=== PATIENT | female | born 1990 | race Caucasian/White ===

== ENCOUNTER 2016-04-20 12:33 | Emergency (ER) | payer MEDICAID ==
[~2016-04-20] VITALS: Wt 63.0 kg
[~2016-04-20 12:33] MED LIST: ACET325T33 PO; CEPH-443 PO; HYDR-906 PO; METO10TA92 PO; NITR-58 PO
[2016-04-20] MEDS ORDERED: ACETAMINOPHEN 325 MG TAB PO ONE (15:00)
[2016-04-20] MEDS ORDERED: METOCLOPRAMIDE 10 MG TAB PO ONE (15:00)
[2016-04-20 15:28] LABS: BASOPHIL # 0.1 10^3/ul (0.0-0.1); BASOPHILS % 1.3 % (0.0-2.0); EOSINOPHILS % 0.5 % (0.0-7.0); HEMATOCRIT 39.5 % (37.0-47.0); HEMOGLOBIN 13.3 g/dl (12.0-16.0); LYMPHOCYTES # 2.3 10^3/ul (0.8-2.9); LYMPHOCYTES % 23.3 % (15.0-51.0); MEAN CORPUSCULAR HEMOGLOBIN 32.1 pg (29.0-33.0); MEAN CORPUSCULAR HGB CONC 33.7 g/dl (32.0-37.0); MEAN CORPUSCULAR VOLUME 95.4 fl (82.0-101.0); MEAN PLATELET VOLUME 7.6 fl (7.4-10.4); MONOCYTE # 0.4 10^3/ul (0.3-0.9); MONOCYTES % 3.9 % (0.0-11.0); PLATELET COUNT 290 10^3/UL (140-440); RED BLOOD COUNT 4.14 10^6/ul (4.20-5.40); RED CELL DISTRIBUTION WIDTH 14.7 % (11.5-14.5); UNCORRECTED WBC 9.9 10^3/ul (4.8-10.8); WHITE BLOOD COUNT 9.9 10^3/ul (4.8-10.8)
[2016-04-20 15:29] LABS: CONDITION 1; LH ANALYZER COMMENTS 1
[2016-04-20 15:39] LABS: ADD UMIC YES; URINE BILIRUBIN (Dip) NEGATIVE (NEGATIVE); URINE BLOOD (Dip) NEGATIVE (NEGATIVE); URINE GLUCOSE (Dip) NEGATIVE (NEGATIVE); URINE KETONES (Dip) 3+ (NEGATIVE); URINE LEUKOCYTE ESTERASE (Dip) TRACE (NEGATIVE); URINE NITRITE (Dip) NEGATIVE (NEGATIVE); URINE TOTAL PROTEIN (Dip) NEGATIVE (NEGATIVE); URINE UROBILINOGEN (Dip) 1.0 E.U./dL (0.1-1.0)
[2016-04-20 15:47] LABS: URINE COLOR YELLOW (YELLOW)
--- NOTE | 2016-04-20 15:48 | RADRPT ---
PROCEDURE: US OB. CLINICAL INDICATION: Vaginal bleeding TECHNIQUE: Multiple sonographic images of the pelvis and gravid uterus were obtained. The images were reviewed on a PACS workstation. COMPARISON: 02/29/2016 FINDINGS: There is a single viable intrauterine gestation. Cardiac activity is present with 142 beats per min [place]. There is a variable presentation. The placenta is anterior. There is no evidence for an abruption or placenta previa. There is a normal amount of amniotic fluid with a MVP = 3.1 cm. Measurements were made in order to determine age. The results are as follows: BPD =3.7 cm HC =13.6 cm AC =12.1 cm FL =2.3 cm Estimated gestational age of approximately 17 weeks and 2 days based on ultrasound measurements. The estimated date of delivery is 09/26/16, based on ultrasound measurements. The EFW = 191 g. The right ovary is normal in size and echogenicity measures 3.5 x 1.6 x 2.1 cm. The left ovary is n ot seen. RPTAT: AA IMPRESSION: Single viable intrauterine gestation of approximately 17 weeks and 2 days based on ultrasound measu rements. .Bandar Murrell MD, Date Time Electronically viewed and signed by .Bandar Murrell MD, on 04/20/2016 15:48 .S/
[2016-04-20 15:55] LABS: BACTERIA,URINE MANY; MUCUS,URINE MODERATE; SQUAMOUS EPITHELIAL CELL,UR MODERATE
[2016-04-20 15:56] LABS: URINE RBCS NONE SEEN /HPF (0)
[2016-04-20] MEDS ORDERED: CEPH-443 PO (16:49)
--- NOTE | 2016-04-20 16:54 | ERD ---
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 HPI Patient is a 26-year-old female approximately 16 weeks complaining of 9 out of 10 pelvic pain with nausea and vomiting. She states that today she went to the bathroom and she wiped and there was a small amount of blood and then she had a small clot come out. She does admit to dysuria and frequency and that her urine smells bad. She denies fever. She is tolerating oral intake. ROS All systems reviewed and are negative except as per history of present illness. Medications Home Meds Active Scripts Cephalexin* (Keflex*) 500 Mg Capsule, 500 MG PO BID for 5 Days, CAP Prov:MARIBELL STOLL PA-C 04/20/16 Metoclopramide* (Reglan*) 10 Mg Tablet, 10 MG PO Q6 Y for NAUSEA AND/OR VOMITING , #10 TAB Prov:DONATO BECERRIL PA-C 02/29/16 Cephalexin* (Keflex*) 500 Mg Capsule, 500 MG PO QID for 7 Days, CAP Prov:DONATO BECERRIL PA-C 02/29/16 Acetaminophen* (Tylenol*) 325 Mg Tablet, 1 TAB PO Q6 Y for PAIN AND OR ELEVATED TEMP, #30 TAB Prov:TJ MORRISON PA-C 02/13/16 Cephalexin* (Keflex*) 500 Mg Capsule, 500 MG PO QID for 7 Days, CAP Prov:TJ MORRISON PA-C 02/13/16 Nitrofurantoin Monohyd Macrocr* (Macrobid*) 100 Mg Capsr, 100 MG PO BID for 7 Days, CAP Prov:TJ MORRISON PA-C 11/28/15 Hydrocodone/Acetaminophen ([place] 5-325 Tablet) 1 Each Tablet, 1 TAB PO Q6H Y for PAIN, #7 TAB Prov:TJ MORRISON PA-C 11/28/15 Allergies Allergies: Coded Allergies: No Known Allergy (Unverified , 02/13/16) PMhx/Soc Medical and Surgical Hx: pt denies Medical Hx, pt denies Surgical Hx History of Surgery: No Anesthesia Reaction: No Hx Neurological Disorder: No Hx Respiratory Disorders: No Hx Cardiac Disorders: No Hx Psychiatric Problems: No Hx Miscellaneous Medical Probl: No Hx Alcohol Use: No Hx Substance Use: No Hx Tobacco Use: No Smoking Status: Never smoker FmHx Family History: No diabetes Physical Exam Vitals Vital Signs Date Time Temp Pulse Resp B/P Pulse Ox O2 Delivery O2 Flow Rate FiO2 04/20/16 13:00 97.9 73 20 116/64 98 Physical Exam General: well developed, well nourished, alert, nontoxic, no distress Head: normocephalic, atraumatic Eyes: PERRL, normal conjunctiva Neck: Supple, nontender, no lymphadenopathy, no midline tenderness Respiratory: Clear to auscaultation bilaterally, speaks in full sentences, no use of accesory muscles or labored breathing, no rales, ronchi, or wheezing Cardiovascular: RRR, No murmurs GI: soft, non tender, non distended, negative murphys sign, negative mcburneys point tenderness, no cva tenderness bilaterally, no rebound or guarding Back: no midline tenderness, no step offs or bony abnormalities, sensation to light touch in tact Result Diagram: 04/20/16 1510 Results 24 hrs Laboratory Tests Test 04/20/16 15:10 04/20/16 15:12 Basophils # 0.110^3/ul Basophils % 1.3% Beta HCG, Quantitative 01619.0mIU/ml Blood Morphology Comment Eosinophils # 0.010^3/ul Eosinophils % 0.5% Hematocrit 39.5% Hemoglobin 13.3g/dl Lymphocytes # 2.310^3/ul Lymphocytes % 23.3% Mean Corpuscular Hemoglobin 32.1pg Mean Corpuscular Hemoglobin Concent 33.7g/dl Mean Corpuscular Volume 95.4fl Mean Platelet Volume 7.6fl Monocytes # 0.410^3/ul Monocytes % 3.9% Neutrophils # 7.010^3/ul Neutrophils % 71.0% Nucleated Red Blood Cells # 0.010^3/ul Nucleated Red Blood Cells % 0.0/100WBC Platelet Count 10178^3/UL Red Blood Count 4.1410^6/ul Red Cell Distribution Width 14.7% White Blood Count 9.910^3/ul Urine Amorphous Urates FEW Urine Bacteria MANY Urine Bilirubin NEGATIVE Urine Clarity CLOUDY Urine Color YELLOW Urine Glucose NEGATIVE% Urine Hemoglobin NEGATIVE Urine Ketones 3+ Urine Leukocyte Esterase TRACE Urine Microscopic RBC NONE SEEN/HPF Urine Microscopic WBC 10-25/HPF Urine Mucus MODERATE Urine Nitrite NEGATIVE Urine Specific [place] 1.025 Urine Squamous Epithelial Cells MODERATE Urine Total Protein NEGATIVE Urine Urobilinogen 1.0 E.U./dL Urine pH 6.5 Current Medications Medications (Trade) Dose Ordered Sig/Brett Route PRN Reason Start Time Stop Time Status Last Admin Dose Admin Metoclopramide HCl (Reglan) 10 mg ONCE ONCE PO 04/20/16 15:00 04/20/16 15:01 DC 04/20/16 15:11 Acetaminophen (Tylenol Tab) 650 mg ONCE ONCE PO 04/20/16 15:00 04/20/16 15:01 DC 04/20/16 15:11 Procedures/MDM Patient presents with vaginal bleeding during . Vital signs are within normal limits. Exam is benign. She is hemodynamically stable. Ultrasound is within normal limits and shows viable intrauterine . Urine shows mild urinary tract infection possibly with trace leukocytes. Given she is symptomatic I will treat her with Keflex and I told her she could take Tylenol at home for pain. She was given copies of her ultrasound report and labs. Recommended this patient follow up with her primary care doctor within 48 hours or return to the emergency room for any worsening of symptoms. However this time I do believe there is suitable for outpatient management. I answered all their questions and they agreed with the plan and were discharged home. Departure Diagnosis: Primary Impression: Threatened Condition: Stable Patient Instructions: Possible Miscarriage (Threatened ) Additional Instructions: Call your primary care doctor TOMORROW for an appointment during the next 1-2 days.See the doctor sooner or return here if your condition worsens before your appointment time. MARIBELL STOLL PA-C Apr 20, 2016 16:54
== END 2016-04-20 18:57 | disposition home or self-care (01) ==
LOC: FTE 12:33
DX: O20.0 Threatened abortion (principal); Z3A.17 17 weeks gestation of pregnancy
CPT/HCPCS: 36415; 76801; 81001; 81003; 84702; 85025; 86900; 86901; Z7502; Z7610

== ENCOUNTER 2016-06-11 17:54 | Outpatient (CLI) | payer MEDICAID ==
[~2016-06-11] VITALS: Ht 154.9 cm; Wt 58.9 kg
[2016-06-11 18:16] VITALS: Ht 154.9 cm; Wt 58.9 kg
[2016-06-11 18:17] VITALS: BP 112/67; PULSE 77
[2016-06-11 18:29] LABS: ADD UMIC YES; URINE BILIRUBIN (Dip) NEGATIVE (NEGATIVE); URINE BLOOD (Dip) NEGATIVE (NEGATIVE); URINE COLOR LT. YELLOW (YELLOW); URINE GLUCOSE (Dip) NEGATIVE (NEGATIVE); URINE KETONES (Dip) NEGATIVE (NEGATIVE); URINE LEUKOCYTE ESTERASE (Dip) TRACE (NEGATIVE); URINE NITRITE (Dip) NEGATIVE (NEGATIVE); URINE TOTAL PROTEIN (Dip) NEGATIVE (NEGATIVE); URINE UROBILINOGEN (Dip) 0.2 E.U./dL (0.1-1.0)
[2016-06-11 18:58] LABS: BACTERIA,URINE MODERATE; SQUAMOUS EPITHELIAL CELL,UR MANY; URINE RBCS NONE SEEN /HPF (0)
--- NOTE | 2016-06-11 19:05 | RADRPT ---
PROCEDURE: US OB. CLINICAL INDICATION: Pelvic pain. TECHNIQUE: Multiple sonographic images of the uterus were obtained. Transvaginal sonogra phy of the cervix was also performed. The images were reviewed on a PACS workstation. COMPARISON: No prior studies are available for comparison. FINDINGS: There is a single live intrauterine gestation. heart rate is 150 beats per minute. Measurements were made in order to determine age. The results are as follows: BPD = 5.78 cm. HC = 22.39 cm. AC = 19.96 cm. FL = 4.27 cm. Estimated weight is 681 +/- 102 grams. LMP growth percentile is 55 %. Cervical length is 4.4 cm. Menstrual age by ultrasound dates is 24 weeks 1 day. The estimated date of delivery is 09/30/2016. Position is breech and placenta is anterior grade 0. There is no evidence for an abruption or placen ta previa. IMPRESSION: 1. Single live intrauterine gestation of 24 weeks 1 day menstrual age by ultrasound dates. 2. The estimated date of delivery is 09/30/2016. 3. Cervical length is 4.4 cm. RPTAT: QQ .Devyn Benton MD, MD Date Time Electronically viewed and signed by .Devyn Benton MD, MD on 06/11/2016 19:05 .R/
[2016-06-11] MEDS ORDERED: ACETAMINOPHEN 500 MG TAB PO STA (19:15)
--- NOTE | 2016-06-11 20:23 | TRIAGE ---
OB Triage Datetime Report Generated by CPN: 06/11/2016 20:23 Datetime: 06/11/2016 20:00 Labor Evaluation Frequency: NONE Monitor Mode: External Duration (sec)2399: NONE Pattern: Normal: <= 5 Contractions in 10 Minutes Contraction Comments: ABD SOFT Heart Rate FHR Baseline Rate: 145 Monitor Mode: External US FHR Baseline Changes: No Baseline Change Variability: Moderate 6-25 bpm Accelerations: 10X10 Decelerations: None Category: Category I Datetime: 06/11/2016 19:30 Labor Evaluation Frequency: NONE Monitor Mode: External Duration (sec)2399: NONE Pattern: Normal: <= 5 Contractions in 10 Minutes Heart Rate FHR Baseline Rate: 145 Monitor Mode: External US FHR Baseline Changes: No Baseline Change Variability: Moderate 6-25 bpm Accelerations: 10X10 Decelerations: Variable Comments: APPROPRIATE FOR GA Datetime: 06/11/2016 19:12 Assessment Type: Triage Maternal Assessment Level of Consciousness: Fully Conscious Headache: Generalized Blurred Vision: No Respiratory Effort: Unlabored; Regular Rhythm; Equal Expansion Breath Sounds, Left: Clear and Equal Breath Sounds, Right: Clear and Equal Nausea/Vomiting: Denies RUQ Epigastric Pain: Denies Lower Extremities Edema: None Degree: None Upper Extremities Edema: None Degree: None Facial Edema: None Fall Risk Assessment History of Falling: (0) No Secondary Diagnosis: (0) No Ambulatory Aid: (0) Bedrest/Nurse Assist IV Therapy: (0) No Gait: (0) Normal/Bedrest/Immobile Mental Status: (0) Oriented to Own Ability Fall Score: 0 Fall Risk Score Definition: No Risk: No action required Datetime: 06/11/2016 19:11 Monitor Mode: Palpation Resting Tone [place]: Relaxed Contraction Comments: abd palpated, soft, non tender Monitor Mode: External US Datetime: 06/11/2016 18:20 Stage of : OB Triage Assessment Type: Triage Maternal Assessment Level of Consciousness: Fully Conscious DTR's/Clonus: DTRs 2+; No Clonus Headache: Denies Blurred Vision: No Respiratory Effort: Unlabored; Regular Rhythm; Equal Expansion Breath Sounds, Left: Clear and Equal Breath Sounds, Right: Clear and Equal Nausea/Vomiting: Denies RUQ Epigastric Pain: Denies Lower Extremities Edema: None Degree: None Upper Extremities Edema: None Degree: None Facial Edema: None Temperature Route: Axillary Fall Risk Assessment History of Falling: (0) No Secondary Diagnosis: (0) No Ambulatory Aid: (0) Bedrest/Nurse Assist IV Therapy: (0) No Gait: (0) Normal/Bedrest/Immobile Mental Status: (0) Oriented to Own Ability Fall Score: 0 Fall Risk Score Definition: No Risk: No action required Labor Evaluation Frequency: x1 Monitor Mode: External Duration (sec)2399: 50 Quality: Mild Pattern: Normal: <= 5 Contractions in 10 Minutes Resting Tone [place]: Relaxed Heart Rate FHR Baseline Rate: 150 Monitor Mode: External US Variability: Moderate 6-25 bpm Decelerations: None Category: Category I Pain Assessment Pain Scale: 8 Pain Presence: Constant Pain Type: Cramping Pain Location: rt lower abdomen Pain Goal: 3 Pain Relief Measures: Comfort Measures Datetime: 06/11/2016 18:19 EGA: 24.1 Datetime: 06/11/2016 18:18 Time of Arrival: 06/11/2016 17:50 Arrived By: Ambulatory Arrived From: Home Chief Complaint: c/o lower right quadrant pain today, denies bleeding, leaking of fluid or uc's Movement: Present Contractions: Denies/Absent Rupture of Membranes: Denies Vaginal Bleeding: None Vaginal Discharge: Denies Recent Sexual Intercouse: Denies Abdominal Trauma: Not Applicable Patient Complaints: Cramping Time Provider Notified: 06/11/2016 18:02 Provider Notified: VANESA Initial Plan: monitor, u/s for placenta, efw, cl Datetime: 06/11/2016 18:02 Stage of : OB Triage
--- NOTE | 2016-06-11 20:40 | PN ---
Date/Time of Note Date/Time of Note DATE: 06/11/16 TIME: 20:29 OB Subjective Subjective Subjective patient is 24+ wks gestation presents with abdominal pain OB Objective Objective Objective OB ultrasound wnl UA wnl Cx 4.4 cm HEENT: WNL Heart: Rhythm Normal Lungs: Clear Abdomen: WNL Extremities: Normal Reflexes: Normal Membranes: Intact Accelerations: Accelerations Present Decelerations: No Decelerations Contractions on Admission: None OB Assessment/Plan Reason for admission: other Other Assessment: Abdominal pain Other plan: D/C home Follow up with OBGYN as outpatient JUSTIN ASHER Jun 11, 2016 20:39
== END 2016-06-11 20:25 | disposition home or self-care (01) ==
LOC: OBT 17:54 → L-D 17:55 → OBT 20:25
PROVIDERS: ATTEND Obstetrics & Gynecology
DX: O60.02 Preterm labor without delivery, second trimester (principal); Z3A.24 24 weeks gestation of pregnancy
CPT/HCPCS: 76815; 76817; 81001; Z7500; Z7610; 81003; G0463

== ENCOUNTER 2016-08-18 09:58 | Emergency (ER) | payer MEDICAID ==
[~2016-08-18] VITALS: Ht 162.6 cm; Wt 61.0 kg
[2016-08-18 10:13] VITALS: Ht 162.6 cm; Wt 61.0 kg
[2016-08-18] MEDS ORDERED: ACETAMINOPHEN 500 MG TAB PO STA (11:22)
[2016-08-18] MEDS ORDERED: METOCLOPRAMIDE 10 MG TAB PO ONE (11:30)
[2016-08-18 11:51] LABS: ADD UMIC YES; URINE BILIRUBIN (Dip) NEGATIVE (NEGATIVE); URINE BLOOD (Dip) NEGATIVE (NEGATIVE); URINE COLOR LT. YELLOW (YELLOW); URINE GLUCOSE (Dip) NEGATIVE (NEGATIVE); URINE KETONES (Dip) TRACE (NEGATIVE); URINE LEUKOCYTE ESTERASE (Dip) TRACE (NEGATIVE); URINE NITRITE (Dip) NEGATIVE (NEGATIVE); URINE TOTAL PROTEIN (Dip) NEGATIVE (NEGATIVE); URINE UROBILINOGEN (Dip) 0.2 E.U./dL (0.1-1.0)
[2016-08-18 12:03] LABS: BACTERIA,URINE MANY
[2016-08-18] MEDS ORDERED: CEPHALEXIN 500 MG CAP PO ONE (12:30)
[2016-08-18] MEDS ORDERED: CEPH-443 PO (12:32)
[2016-08-18] MEDS ORDERED: ACET500C5 PO (12:32)
--- NOTE | 2016-08-18 12:36 | ERD ---
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 Patient presents with left arm pain after receiving Tdap vaccination 2 days ago. She also has subjective fever and body aches. She had some vomiting 2 times nonbilious nonbloody. She denies abdominal pain or vaginal bleeding. She has mild generalized myalgias as well. She is mild bitemporal headache without neck stiffness as well. She has visual changes . ROS All systems reviewed and are negative except as per history of present illness. Medications Home Meds Active Scripts Acetaminophen* (Tylophen*) 500 Mg Capsule, 1 CAP PO Q6H Y for PAIN AND OR ELEVATED TEMP, #15 CAP Prov:JAZMINE ANNE MD 08/18/16 Cephalexin* (Keflex*) 500 Mg Capsule, 500 MG PO QID for 5 Days, CAP Prov:JAZMINE ANNE MD 08/18/16 Allergies Allergies: Coded Allergies: No Known Allergy (Unverified , 08/18/16) PMhx/Soc Medical and Surgical Hx: pt denies Medical Hx, pt denies Surgical Hx History of Surgery: No Anesthesia Reaction: No Hx Neurological Disorder: No Hx Respiratory Disorders: No Hx Cardiac Disorders: No Hx Psychiatric Problems: No Hx Miscellaneous Medical Probl: No Hx Alcohol Use: No Hx Substance Use: No Hx Tobacco Use: No Smoking Status: Never smoker Physical Exam Vitals Vital Signs Date Time Temp Pulse Resp B/P Pulse Ox O2 Delivery O2 Flow Rate FiO2 08/18/16 10:13 98.0 66 18 136/74 98 Physical Exam Const: [] Alert, [id number] Head: Atraumatic Eyes: Normal Conjunctiva ENT: Normal External Ears, Nose and Mouth. Neck: Full range of motion..~ No meningismus. Resp: Clear to auscultation bilaterally Cardio: Regular rate and rhythm, no murmurs Abd: Soft, non tender, non distended. Normal bowel sounds Skin: No petechiae or rashes. The left deltoid at the site of injection shows no erythema or fluctuance or induration. There is mild tenderness with a healed puncture wound. Back: No midline or flank tenderness Ext: No cyanosis, or edema Neur: Awake and alert Psych: Normal Mood and Affect Results 24 hrs Laboratory Tests Test 08/18/16 11:30 Urine Color LT. YELLOW Urine Clarity CLEAR Urine pH 7.0 Urine Specific [place] 1.015 Urine Ketones TRACE Urine Nitrite NEGATIVE Urine Bilirubin NEGATIVE Urine Urobilinogen 0.2 E.U./dL Urine Leukocyte Esterase TRACE Urine Microscopic RBC 2-5/HPF Urine Microscopic WBC 5-10/HPF Urine Epithelial Cells MODERATE Urine Amorphous Phosphates MANY Urine Bacteria MANY Urine Hemoglobin NEGATIVE Urine Glucose NEGATIVE% Urine Total Protein NEGATIVE Current Medications Medications (Trade) Dose Ordered Sig/Brett Route PRN Reason Start Time Stop Time Status Last Admin Dose Admin Acetaminophen (Tylenol Tab) 500 mg ONCE STAT PO 08/18/16 11:22 08/18/16 11:23 DC 08/18/16 11:27 Metoclopramide HCl (Reglan) 10 mg ONCE ONCE PO 08/18/16 11:30 08/18/16 11:31 DC 08/18/16 11:27 Cephalexin (Keflex) 500 mg ONCE ONCE PO 08/18/16 12:30 08/18/16 12:31 DC Procedures/MDM Urine shows bacteria and leukocytes. Urine was sent for culture. There is no protein. This 33 week patient presents with myalgias febrile illness and 2 episodes of vomiting. She is well-appearing and has no active vomiting during her ED course. She may have a viral illness or somatic response to Tdap was no signs of cellulitis. I have low suspicion that the myalgias subjective fevers are due to descending UTI but patient should recheck for vomiting which persists , abdominal pain, flank pain, new worsening symptoms. There is no signs or symptoms of preeclampsia or current complications of . She will be treated with Keflex here as well as Tylenol 1 dose of Reglan and instructions to follow-up with primary doctor this week return to the ER for new or worsening symptoms. The patient was stable with no new complaints during the ER course. Clinically, there is no current evidence to suggest meningitis, sepsis, acute abdomen, pneumonia, acute coronary syndrome, pulmonary embolism, or any other emergent condition appearing to require further evaluation or hospitalization. The patient should certainly return for any new or worsening symptoms per the aftercare instructions. They should otherwise follow-up with her primary care doctor for reevaluation this week. Departure Diagnosis: Primary Impression: Myalgia Additional Impression: Urinary tract infection Urinary tract infection type: acute cystitis Hematuria presence: without hematuria Qualified Code: N30.00 - Acute cystitis without hematuria Condition: Stable Patient Instructions: Understanding Urinary Tract Infections (UTIs), Myalgias Additional Instructions: FLORINA INFECCION EN ORINA, GIANA POSIBLEMENTE un virus que dura 2-4 [place]. cheque otro german el proximo roula para mas simptomas- vomito, dolor, altagracia, problemas con respirando, o con byrd doctor primario. JAZMINE ANNE MD Aug 18, 2016 12:36
== END 2016-08-18 12:46 | disposition home or self-care (01) ==
LOC: FTE 09:58
DX: O99.89 Other specified diseases and conditions complicating pregnancy, childbirth and the puerperium (principal); M79.1 Myalgia; O23.13 Infections of bladder in pregnancy, third trimester; Z3A.33 33 weeks gestation of pregnancy
CPT/HCPCS: 81001; 87086; Z7502; Z7610; 99283

== ENCOUNTER 2016-09-21 00:40 | Inpatient (IN) | payer MEDICAID ==
[~2016-09-21] VITALS: Ht 154.9 cm; Wt 63.3 kg
[~2016-09-21 00:40] MED LIST changes: -ACET325T33 PO; +ACET500C5 PO; -HYDR-906 PO; -METO10TA92 PO; -NITR-58 PO
[2016-09-21 01:46] VITALS: BP 126/80; PULSE 63; RESP 18
[2016-09-21 01:47] VITALS: Ht 154.9 cm; Wt 63.3 kg
[2016-09-21] MEDS ORDERED: PRENAT PO (01:50)
[2016-09-21] MEDS ORDERED: FERR325C PO (01:50)
[2016-09-21] MEDS ORDERED: CARBOPROST 250 MCG INJ IM PRN ×2 (03:00→05:30)
[2016-09-21] MEDS ORDERED: OXYTOCIN 30 UNITS/LR 500 ML IV PRN ×2 (03:00→05:30)
[2016-09-21] MEDS ORDERED: MISOPROSTOL 200 MCG TAB PR PRN ×2 (03:00→05:30)
[2016-09-21] MEDS ORDERED: LIDOCAINE 1% (MPF) 30 ML INJ INJ PRN (03:00)
[2016-09-21] MEDS ORDERED: BUTORPHANOL 2 MG INJ IV PRN ×2 (03:00)
[2016-09-21] MEDS ORDERED: IBUPROFEN 600 MG TAB PO PRN (03:00)
[2016-09-21] MEDS ORDERED: OXYTOCIN 30 UNITS/LR 500 ML IV SCH ×2 (03:00)
[2016-09-21] MEDS ORDERED: ACETAMINOPHEN/CODEINE #3 TAB PO PRN ×3 (03:00→05:30)
[2016-09-21] MEDS ORDERED: METHYLERGONOVINE 0.2 MG INJ IM PRN ×2 (03:00→05:30)
[2016-09-21] MEDS ORDERED: AMPICILLIN 2 GM/NS (PMX) 100 ML IV ONE (03:00)
--- NOTE | 2016-09-21 03:24 | TRIAGE ---
OB Triage Datetime Report Generated by CPN: 09/21/2016 03:23 Datetime: 09/21/2016 03:05 Stage of : Labor Datetime: 09/21/2016 03:00 Stage of : Labor Monitor Mode: External Monitor Mode: External US Datetime: 09/21/2016 02:35 Stage of : OB Triage Datetime: 09/21/2016 02:30 Stage of : OB Triage Datetime: 09/21/2016 02:26 Stage of : OB Triage Pain Assessment Pain Scale: 10 Pain Presence: Intermittent Pain Type: Contraction Pain Location: Abdomen; Back Pain Goal: 5 Pain Relief Measures: Comfort Measures Vaginal Exam Dilatation (cms): 3.5 Effacement (%): 90 Station: -2 Exam By: sarah villanueva Vaginal Bleeding: None Cervix, Consistency: Soft Cervix, Position: Midposition Presentation 'A': Cephalic Datetime: 09/21/2016 02:17 Labor Evaluation Frequency: 2-6 Monitor Mode: External Duration (sec)2399: 60-120 Pattern: Normal: <= 5 Contractions in 10 Minutes Resting Tone [place]: Relaxed Heart Rate FHR Baseline Rate: 150 Monitor Mode: External US Variability: Moderate 6-25 bpm Accelerations: 15X15 Decelerations: None Category: Category I Pain Assessment Pain Scale: 8 Pain Presence: Intermittent Pain Type: Contraction Pain Location: Abdomen; Back Pain Goal: 5 Pain Relief Measures: Comfort Measures Datetime: 09/21/2016 01:13 Labor Evaluation Frequency: 2-4 Monitor Mode: External Duration (sec)2399: 60-80 Quality: Mild Pattern: Normal: <= 5 Contractions in 10 Minutes Resting Tone [place]: Relaxed Heart Rate FHR Baseline Rate: 155 Monitor Mode: External US Variability: Moderate 6-25 bpm Accelerations: 15X15 Decelerations: None Category: Category I Datetime: 09/21/2016 01:08 Assessment Type: Triage Maternal Assessment Level of Consciousness: Fully Conscious DTR's/Clonus: DTRs 2+; No Clonus Headache: Denies Blurred Vision: No Respiratory Effort: Unlabored; Regular Rhythm; Equal Expansion Nausea/Vomiting: Denies RUQ Epigastric Pain: Denies Facial Edema: None Fall Risk Assessment History of Falling: (0) No Secondary Diagnosis: (0) No Ambulatory Aid: (0) Bedrest/Nurse Assist IV Therapy: (0) No Gait: (0) Normal/Bedrest/Immobile Mental Status: (0) Oriented to Own Ability Datetime: 09/21/2016 01:05 Time of Arrival: 09/21/2016 03:05 Arrived By: Ambulatory Arrived From: Home Chief Complaint: Contraction pain 10/25 Movement: Present Contractions: Irregular Time Contractions Began: 09/20/2016 19:00 Rupture of Membranes: Denies Vaginal Bleeding: None Vaginal Discharge: Denies Recent Sexual Intercouse: Denies Abdominal Trauma: Not Applicable Patient Complaints: Contractions Time Provider Notified: 09/21/2016 01:06 Provider Notified: Uaje Initial Plan: NST, Vaginal exam for cevical change Datetime: 09/21/2016 00:51 Stage of : OB Triage Temperature Route: Oral Monitor Mode: External (Annotations: applied) Monitor Mode: External US (Annotations: applied) Pain Assessment Pain Scale: 8 Pain Presence: Intermittent Pain Type: Contraction Pain Location: Abdomen; Back Pain Goal: 0 Pain Assessment Comments: Continue to observe if uterine activity will result to cervical change, pt verbalized understanding. Vaginal Exam Dilatation (cms): 2.0 Effacement (%): 80 Station: -3 Exam By: Bonny Hamilton
[2016-09-21 03:33] LABS: ADD SCAN DIFF NO
[2016-09-21 03:35] LABS: BASOPHILS % 0.3 % (0.0-2.0); EOSINOPHILS % 0.2 % (0.0-7.0); HEMATOCRIT 40.2 % (37.0-47.0); HEMOGLOBIN 13.2 g/dl (12.0-16.0); LYMPHOCYTES # 2.2 10^3/ul (0.8-2.9); LYMPHOCYTES % 19.8 % (15.0-51.0); MEAN CORPUSCULAR HEMOGLOBIN 30.3 pg (29.0-33.0); MEAN CORPUSCULAR HGB CONC 32.8 g/dl (32.0-37.0); MEAN CORPUSCULAR VOLUME 92.2 fl (82.0-101.0); MEAN PLATELET VOLUME 11.9 fl (7.4-10.4); MONOCYTE # 0.5 10^3/ul (0.3-0.9); MONOCYTES % 4.3 % (0.0-11.0); NEUTROPHIL # 8.5 10^3/ul (1.6-7.5); NEUTROPHILS % 74.9 % (39.0-77.0); PLATELET COUNT 217 10^3/UL (140-415); RED BLOOD COUNT 4.36 10^6/ul (4.20-5.40); RED CELL DISTRIBUTION WIDTH 13.6 % (11.5-14.5); WHITE BLOOD COUNT 11.3 10^3/ul (4.8-10.8)
[2016-09-21] MEDS: LACTATED RINGER'S 1,000 ML IV SCH ×2 (03:44→10:35)
[2016-09-21 03:51] LABS: INR 0.88; PARTIAL THROMBOPLASTIN TIME 25.3 Sec (25.0-35.0); PROTIME 11.9 Sec (12.2-14.2); PT RATIO 0.9
[2016-09-21] MEDS ORDERED: LACTATED RINGER'S 1,000 ML IV PRN (05:00)
[2016-09-21 05:02] LABS: BARBITURATES Negative (NEGATIVE); BENZODIAZEPINES Negative (NEGATIVE); CANNABINOIDS Negative (NEGATIVE); COCAINE Negative (NEGATIVE); OPIATES Negative (NEGATIVE)
--- NOTE | 2016-09-21 05:13 | HP ---
Date/Time of Note Date/Time of Note DATE: 09/21/16 TIME: 05:11 OB - History Hx of Present Chief Complaint: Contractions Estimated Due Date: Sep 30, 2016 : 1 Para: 0 Care: Good Care Ultrasounds: Normal mid trimester US Obstetrical Complications: None Medical Complications: None Past Family/Social History * Past Medical, Surgical, Family and Obstetric Histories reviewed from chart. OB Admission Exam Vital Signs Vital Signs Vital Signs Date Time Temp Pulse Resp B/P Pulse Ox O2 Delivery O2 Flow Rate FiO2 09/21/16 01:46 98.2 63 18 126/80 Room Air Physical Exam HEENT: WNL Heart: Rhythm Normal Lungs: Clear, Equal Abdomen: WNL Extremities: Normal Reflexes: Normal Cervical Dilatation: 3cm Accelerations: Accelerations Present Decelerations: Variable Decelerations Varibility: Moderate Contractions on Admission: < 5 Minutes Apart Last 72 hours Lab Results CBC & BMP 09/21/16 03:10 OB Assessment/Plan Reason for admission: active labor Plan: Expectant Management ELIU FOWLER Sep 21, 2016 05:13
[2016-09-21] MEDS: OXYTOCIN 30 UNITS/LR 500 ML IV SCH ×2 (05:16→09:07)
[2016-09-21] MEDS: LACTATED RINGER'S 1,000 ML IV* SCH ×2 (05:16→13:16)
--- NOTE | 2016-09-21 05:16 | LDN ---
Date/Time of Note Date/Time of Note DATE: 09/21/16 TIME: 05:14 Delivery Summary Weeks of Gestation 38 5/7 weeks Placenta Delivered: Intact & Complete Episiotomy: No Perineal laceration: 1 Laceration repair: 1st degree perineal, L. sulcal, R. labial repaired with 3-0 chromic Anesthesia type: Local Estimated blood loss: 200 Sponge & Needle done & correct: Yes All needle counts correct: Yes Any foreign bodies felt in the: No Problems: Infant Delivery Information Sex Sex: female Apgars 1 Minute: 9 5 Minute: 9 Suctioning Nose & mouth suctioned at brinda: Yes Umbilical Cord Cord presentations: no nuchal cord Cord Blood was obtained: Yes Mother & Baby Disposition Disposition Mom & Baby to Maternity; Good: Yes ELIU FOWLER Sep 21, 2016 05:16
[2016-09-21] MEDS ORDERED: LANOLIN 7 GM TUBE TOP PRN (05:30)
[2016-09-21] MEDS ORDERED: DIBUCAINE 1% 30 GM OINT PR PRN (05:30)
[2016-09-21 06:40] VITALS: BP 121/95; PULSE 52; RESP 20
[2016-09-21] MEDS ORDERED: AMPICILLIN 1 GM/NS (PMX) 50 ML IV SCH (07:00)
[2016-09-21] MEDS: IBUPROFEN 600 MG TAB PO SCH ×3 (07:10→18:17)
[2016-09-21 08:30] VITALS: BP 127/83; PULSE 60; RESP 18
[2016-09-21] MEDS: WITCH HAZEL/GLYCERIN PAD PR PRN (09:10)
[2016-09-21] MEDS: BENZOCAINE 20% 56 ML SPRAY TOP PRN (09:11)
[2016-09-21 12:48] VITALS: BP 118/75; PULSE 61; RESP 18
[2016-09-21 16:30] VITALS: BP 109/55; PULSE 61; RESP 18
[2016-09-21 20:00] VITALS: BP 102/52; PULSE 73; RESP 18
[2016-09-22] MEDS: IBUPROFEN 600 MG TAB PO SCH ×5 (00:41→23:40)
[2016-09-22 04:00] VITALS: BP 98/51; PULSE 54; RESP 18
[2016-09-22 08:00] VITALS: BP 104/68; PULSE 63; RESP 18
[2016-09-22 11:02] LABS: ADD SCAN DIFF NO
[2016-09-22 11:04] LABS: BASOPHILS % 0.3 % (0.0-2.0); EOSINOPHILS # 0.1 10^3/ul (0.0-0.5); EOSINOPHILS % 0.7 % (0.0-7.0); HEMATOCRIT 33.5 % (37.0-47.0); HEMOGLOBIN 10.8 g/dl (12.0-16.0); LYMPHOCYTES # 3.1 10^3/ul (0.8-2.9); LYMPHOCYTES % 26.5 % (15.0-51.0); MEAN CORPUSCULAR HEMOGLOBIN 30.5 pg (29.0-33.0); MEAN CORPUSCULAR HGB CONC 32.2 g/dl (32.0-37.0); MEAN CORPUSCULAR VOLUME 94.6 fl (82.0-101.0); MONOCYTE # 0.6 10^3/ul (0.3-0.9); MONOCYTES % 5.1 % (0.0-11.0); NEUTROPHIL # 7.7 10^3/ul (1.6-7.5); PLATELET COUNT 187 10^3/UL (140-415); RED BLOOD COUNT 3.54 10^6/ul (4.20-5.40); RED CELL DISTRIBUTION WIDTH 14.6 % (11.5-14.5); WHITE BLOOD COUNT 11.5 10^3/ul (4.8-10.8)
--- NOTE | 2016-09-22 12:10 | PN ---
Date/Time of Note Date/Time of Note DATE: 09/22/16 TIME: 12:08 OB Subjective Subjective Subjective 09/22/2016 Ob progress note Post day 1 Patient is doing well, Ambulatory She is afebrile Abdomen is soft , Fundus is firm Moderate amount of lochia Breasts are soft, Nipples are intact No calf tenderness. Perineum is healing well. Breast feeding the new born. Laboratory Tests Test 09/22/16 10:30 White Blood Count 11.510^3/ul Red Blood Count 3.5410^6/ul Hemoglobin 10.8g/dl Hematocrit 33.5% Mean Corpuscular Volume 94.6fl Mean Corpuscular Hemoglobin 30.5pg Mean Corpuscular Hemoglobin Concent 32.2g/dl Red Cell Distribution Width 14.6% Platelet Count 76843^3/UL Mean Platelet Volume 11.0fl Neutrophils % 67.0% Lymphocytes % 26.5% Monocytes % 5.1% Eosinophils % 0.7% Basophils % 0.3% Nucleated Red Blood Cells % 0.0/100WBC Neutrophils # 7.710^3/ul Lymphocytes # 3.110^3/ul Monocytes # 0.610^3/ul Eosinophils # 0.110^3/ul Basophils # 0.010^3/ul Nucleated Red Blood Cells # 0.010^3/ul Current Medications Medications (Trade) Dose Ordered Sig/Brett Route PRN Reason Start Time Stop Time Status Last Admin Dose Admin Lactated Ringer's 1,000 ml @ 125 mls/hr Q8H IV 09/21/16 02:35 09/21/16 15:06 DC 09/21/16 03:44 Ampicillin 100 ml @ 100 mls/hr ONCE ONCE IV 09/21/16 03:00 09/21/16 03:59 DC 09/21/16 03:44 Ampicillin (Ampicillin 1 Gm/ NS (Pmx)) 50 ml @ 100 mls/hr Q4H IV 09/21/16 07:00 09/21/16 07:00 DC Butorphanol Tartrate (Stadol) 1 mg Q2H PRN IV PAIN 09/21/16 03:00 09/21/16 06:47 DC Butorphanol Tartrate (Stadol) 2 mg Q2H PRN IV PAIN 09/21/16 03:00 09/21/16 06:47 DC Lidocaine 30 ml 30 ml ONCE PRN INJ EPISIOTOMY/TEARING 09/21/16 03:00 09/21/16 06:47 DC 09/21/16 05:00 Oxytocin/Lactated Ringer's 500 ml @ 125 mls/hr ONCE -MAY REPEAT X1 IV 09/21/16 03:00 09/21/16 05:22 Oxytocin/Lactated Ringer's 500 ml @ 125 mls/hr ONCE IV 09/21/16 03:00 09/21/16 05:22 Ibuprofen (Motrin) 600 mg ONCE PRN PO Mild Pain (Pain Score 1-3) 09/21/16 03:00 Acetaminophen/ Codeine Phosphate 2 tab 2 tab ONCE PRN PO Moderate to Severe Pain (4-10) 09/21/16 03:00 09/21/16 05:28 Lactated Ringer's 1,000 ml @ 2,000 mls/hr Q30M PRN IV PRE-EPIDURAL BOLUS 09/21/16 05:00 Oxytocin/Lactated Ringer's 500 ml @ 0 mls/hr ONCE PRN IV For Hemorrhage Management 09/21/16 03:00 Methylergonovine Maleate (Methergine) 0.2 mg ONCE PRN IM VAGINAL BLEEDING 09/21/16 03:00 09/21/16 05:48 Carboprost Tromethamine (Hemabate) 250 mcg ONCE PRN IM VAGINAL BLEEDING 09/21/16 03:00 Misoprostol 1000 mcg 1,000 mcg ONCE PRN SD VAGINAL BLEEDING 09/21/16 03:00 Oxytocin/Lactated Ringer's 500 ml @ 125 mls/hr Q4H IV 09/21/16 05:16 09/21/16 13:15 DC 09/21/16 09:07 Lactated Ringer's (Lr) 1,000 ml @ 125 mls/hr Q8H IV* 09/21/16 05:16 09/21/16 15:06 DC Ibuprofen (Motrin) 600 mg Q6 PO 09/21/16 06:00 09/22/16 06:11 Acetaminophen/ Codeine Phosphate (Tylenol No.3) 1 tab Q4H PRN PO PAIN LEVEL 1-5 09/21/16 05:30 Acetaminophen/ Codeine Phosphate (Tylenol No.3) 2 tab Q4H PRN PO PAIN LEVEL 6-10 09/21/16 05:30 Witch Deirdre/ Glycerin (Tucks Pads) 1 pad BEDSIDE MEDICATION PRN SD HEMORRHOID/EPISIOTMY PAIN 09/21/16 05:30 09/21/16 09:10 Benzocaine (Dermoplast [place]) 1 spray BEDSIDE MEDICATION PRN TOP HEMORRHOID/EPISIOTMY PAIN 09/21/16 05:30 09/21/16 09:11 Dibucaine (Nupercainal) 1 applic BEDSIDE MEDICATION PRN SD HEMORRHOID/EPISIOTMY PAIN 09/21/16 05:30 09/21/16 09:11 Lanolin (Yzj-A-Xkhmem) 1 applic BEDSIDE MEDICATION PRN TOP BEDSIDE FOR EMY TO NIPPLES 09/21/16 05:30 09/21/16 09:11 Measles/Mumps/ Rubella Vaccine Live (Mmr Ii Vaccine) 0.5 ml ONCE ONCE SC* 09/23/16 09:00 09/23/16 09:01 Diphtheria/ Tetanus/Acell Pertussis (Adacel) 0.5 ml ONCE ONCE IM* 09/23/16 09:00 09/23/16 09:01 Varicella Virus Vaccine Live 1350 unit 1,350 unit ONCE ONCE SC* 09/23/16 09:00 09/23/16 09:01 Oxytocin/Lactated Ringer's 500 ml @ 0 mls/hr ONCE PRN IV For Hemorrhage Management 09/21/16 05:30 Methylergonovine Maleate (Methergine) 0.2 mg ONCE PRN IM VAGINAL BLEEDING 09/21/16 05:30 Carboprost Tromethamine (Hemabate) 250 mcg ONCE PRN IM VAGINAL BLEEDING 09/21/16 05:30 Misoprostol (Cytotec) 1,000 mcg ONCE PRN SD VAGINAL BLEEDING 09/21/16 05:30 Ambulatory and no complaints. NILO HITCHCOCK MD Sep 22, 2016 12:10
[2016-09-22 15:41] VITALS: BP_SYST 109; BP_SYST 118; BP_DIAS 65; BP_DIAS 75; PULSE 73; PULSE 78; RESP 18
[2016-09-22 20:00] VITALS: BP 102/60; PULSE 61; RESP 18
[2016-09-23 04:00] VITALS: BP 123/83; PULSE 62; RESP 18
[2016-09-23] MEDS: IBUPROFEN 600 MG TAB PO SCH ×2 (06:30→12:00)
[2016-09-23 08:00] VITALS: BP 138/83; PULSE 98; RESP 18
[2016-09-23] MEDS ORDERED: MEASLES,MUMPS,RUBELLA VACCINE INJ SC* ONE (09:00)
[2016-09-23] MEDS ORDERED: DIPHTH/TET/ACEL PERTUSS (ADULT) 0.5 ML VIAL IM* ONE (09:00)
[2016-09-23] MEDS ORDERED: VARICELLA VACCINE LIVE/PF 1,350 UNIT/0.5 ML ML SC* ONE (09:00)
--- NOTE | 2016-09-23 11:54 | PD.PPDC ---
DERMATOLOGY SPECIALIST Discharge Instruction Condition Patient Condition: Good Diet Diet: Resume Regular Diet Activity/Restrictions Activity: Normal Activity May Shower Restrictions: No Sexual Activity Nothing in the Vagina No [employer] No Tampons, douche Follow-up Follow-up with Physician: 6, Week/Weeks Return to clinic for [employer] Instructions: Fever greater than 101 Chills Worsening abdominal pain Excessive Vaginal Bleeding OB Instructions: Breast Tenderness Depression SOHAM WORTHINGTON MD Sep 23, 2016 11:54
--- NOTE | 2016-09-23 11:57 | DS ---
Date/Time of Note Date/Time of Note DATE: 09/23/16 TIME: 11:55 Obstetrical Discharge Record Final Diagnosis Final Diagnosis: Term delivered Vaginal Delivery Obstetrical Delivery: Spontaneous, Laceration, Repaired Complications Augmentation: No Induction: No Condition on Discharge Physical Assessment Last Vitals: T=98.3 BP 123/83 Voiding: Yes Bowel Movement: Yes Breast: Filling Fundus: Firm Calf Tenderness: No Patient Condition: Good SOHAM WORTHINGTON MD Sep 23, 2016 11:56
[2016-09-23] MEDS: WITCH HAZEL/GLYCERIN PAD PR PRN (13:29)
[2016-09-23] MEDS: BENZOCAINE 20% 56 ML SPRAY TOP PRN (13:29)
== END 2016-09-23 14:20 | disposition home or self-care (01) | DRG 775 ==
LOC: L-D 00:40 → OBT 00:40 → L-D 02:35 → PP1 06:39
PROVIDERS: ADMIT Obstetrics & Gynecology; ATTEND Obstetrics & Gynecology
PROC: 10E0XZZ Delivery of Products of Conception, External Approach (ICD-10-PCS; principal; 2016-09-21)
PROC: 0HQ9XZZ Repair Perineum Skin, External Approach (ICD-10-PCS; 2016-09-21)
DX: O76 Abnormality in fetal heart rate and rhythm complicating labor and delivery (principal); O70.0 First degree perineal laceration during delivery; Z3A.38 38 weeks gestation of pregnancy; Z37.0 Single live birth
CPT/HCPCS: 80307; 85025; 85610; 85730; 86592; 86900; 86901; 87340; 90715; 90716; A4310; G0463; J0290; J0595; J2210; J2590; J7120

== ENCOUNTER 2018-04-17 10:30 | Emergency (ER) | payer MEDICAID ==
[~2018-04-17] VITALS: Wt 78.8 kg
[~2018-04-17 10:30] MED LIST changes: -ACET500C5 PO; -CEPH-443 PO; +FERR325C PO; +PRENAT PO
[2018-04-17 10:32] VITALS: BP 130/68; PULSE 79; RESP 18
[2018-04-17] MEDS ORDERED: predniSONE 20 MG TAB PO ONE (11:30)
[2018-04-17] MEDS ORDERED: FAMOTIDINE 20 MG TAB PO ONE (11:30)
[2018-04-17] MEDS ORDERED: DIPHENHYDRAMINE 25 MG CAP PO ONE (11:30)
[2018-04-17] MEDS ORDERED: BEN25 PO (11:45)
[2018-04-17] MEDS ORDERED: PRED20TA PO (11:45)
--- NOTE | 2018-04-17 12:27 | ERD ---
ER Documentation Chief Complaint Chief Complaint RASH/ITCHING HPI 28-year-old female patient with no significant past medical history presents to ED complaining of itchiness. Reports that she developed a rash on her back, buttocks. Denies any lip or tongue swelling. Denies any use of soaps, detergents, eating any new foods or any new creams. Denies taking any new medications. Denies any fever, chills, nausea, vomiting, diarrhea, neck st iffness. ROS All systems reviewed and are negative except as per history of present illness. Medications Home Meds Active Scripts Prednisone* (Prednisone*) 20 Mg Tab, 40 MG PO DAILY for 4 Days, TAB Prov:TJ MORRISON PA-C 04/17/18 Diphenhydramine Hcl* (Benadryl*) 25 Mg Cap, 25 MG PO Q6 PRN for ITCHING/RASH, #30 TAB Prov:TJ MORRISON PA-C 04/17/18 Reported Medications Ferrous Sulfate (Iron) 325 Mg Capsule.er, 325 MG PO BID, CAP 09/21/16 Multivit/Min/Fol Ac/Iron/Pren* ( S*) 1 Tab Tab, 1 TAB PO DAILY, TAB 09/21/16 Allergies Allergies: Coded Allergies: No Known Allergy (Unverified , 08/18/16) PMhx/Soc Medical and Surgical Hx: pt denies Medical Hx, pt denies Surgical Hx History of Surgery: No Anesthesia Reaction: No Hx Neurological Disorder: No Hx Respiratory Disorders: No Hx Cardiac Disorders: No Hx Psychiatric Problems: No Hx Miscellaneous Medical Probl: No Hx Alcohol Use: No Hx Substance Use: No Hx Tobacco Use: No FmHx Family History: No diabetes, No coronary disease Physical Exam Vitals Vital Signs Date Temp Pulse Resp B/P (MAP) Pulse Ox O2 O2 Flow FiO2 Time Delivery Rate 04/17/18 97.7 79 18 130/68 99 10:32 (88) Physical Exam Const: [id number], well-nourished. In no acute distress. Head: Atraumatic, normocephalic Eyes: Normal Conjunctiva without injection. No purulent discharge. ENT: Normal external ear, nose. Moist oropharynx without tonsillar exudates. Non-erythematous pharynx. Uvula midline. No drooling. No trismus. Neck: No cervical midline tenderness. Full range of motion. No meningismus. No cervical lymphadenopathy. No JVD. Resp: Clear to auscultation bilaterally. No wheezing, rhonchi, rales, or crackles. No accessory muscle use. No retractions. Cardio: Regular rate and rhythm. No murmurs, rubs or gallops. Abd: Soft, nontender, non distended. Normal bowel sounds. No palpable masses. No rebound tenderness. No guarding. Negative McBurney's point. Negative psoas sign. Negative obturator sign. Skin: No petechiae or purpura. Erythematous wheal-like lesions noted. No fluctuance or induration. Back: No midline tenderness. No CVA tenderness. Ext: No cyanosis, or edema. Neur: Awake and alert. Normal gait. Normal coordination. Psych: Normal Mood and Affect Results 24 hrs Current Medications Medications Dose Sig/Brett Start Time Status Last (Trade) Ordered Route PRN Stop Time Admin Dose Reason Admin 25 mg ONCE ONCE 04/17/18 DC 04/17/18 Diphenhydrami PO 11:30 11:31 ne HCl 04/17/18 11:31 (Benadryl) Famotidine 20 mg ONCE ONCE 04/17/18 DC 04/17/18 (Pepcid) PO 11:30 11:31 04/17/18 11:31 Prednisone 60 mg ONCE ONCE 04/17/18 DC 04/17/18 (Prednisone) PO 11:30 11:31 04/17/18 11:31 Procedures/MDM 28-year-old female patient with no sniffing past medical history presents the ED complaining of a rash that started 1 week ago. Patient is afebrile and nontoxic-appearing. Wheal-like lesions, erythema noted of her torso, buttocks. No fluctuance or induration. Patient likely has urticaria secondary to unknown allergic etiology. Patient was given prednisone, Benadryl, famotidine here in the ED with improvement of her symptoms. Low suspicion for anaphylaxis, scabies, SJS/TEN, TSS, Lyme's Disease, syphilis, RMSF, shingles, disseminated gonorrhea chlamydia, DIC, TTP, ITP, erythema multiforme, sepsis, cellulitis, necrotizing fasciitis, gangrene, meningococcemia, allergic contact dermatitis, eczema, tinea infection, or other emergent conditions. Diagnosis: Rash and other nonspecific skin eruption Discharge medications: Prednisone, Benadryl Follow up with primary care physician in 1-2 days. Instructed patient to return to the ED sooner for any worsening symptoms. Patient's questions were answered. Patient is hemodynamically stable. Patient understood and agreed with discharge plan. Patient discharged stable. Disclaimer: Inadvertent spelling and grammatical errors are likely due to EHR/dictation software use and do not reflect on the overall quality of patient care. Also, please note that the electronic time recorded on this note does not necessarily reflect the actual time of the patient encounter. Departure Diagnosis: Primary Impression: Rash and other nonspecific skin eruption Condition: Stable Patient Instructions: Self-Care for Skin Rashes, Hives Referrals: [facility] YOU HAVE RECEIVED A MEDICAL SCREENING EXAM AND THE RESULTS INDICATE THAT YOU DO NOT HAVE A CONDITION THAT REQUIRES URGENT TREATMENT IN THE EMERGENCY DEPARTMENT. FURTHER EVALUATION AND TREATMENT OF YOUR CONDITION CAN WAIT UNTIL YOU ARE SEEN IN YOUR DOCTORS OFFICE WITHIN THE NEXT 1-2 DAYS. IT IS YOUR RESPONSIBILITY TO MAKE AN APPOINTMENT FOR FOLOW-UP CARE. IF YOU HAVE A PRIMARY DOCTOR --you should call your primary doctor and schedule an appointment IF YOU DO NOT HAVE A PRIMARY DOCTOR YOU CAN CALL OUR PHYSICIAN REFERRAL HOTLINE AT IF YOU CAN NOT AFFORD TO SEE A PHYSICIAN YOU CAN CHOSE FROM THE FOLLOWING [facility] [address] [facility]. [facility] [address] [facility]. [facility] [address] [facility] [facility] [address] [facility] [facility] [address] [facility]. [facility]. [address] [facility]. [facility] YOU HAVE RECEIVED A MEDICAL SCREENING EXAM AND THE RESULTS INDICATE THAT YOU DO NOT HAVE A CONDITION THAT REQUIRES URGENT TREATMENT IN THE EMERGENCY DEPARTMENT. FURTHER EVALUATION AND TREATMENT OF YOUR CONDITION CAN WAIT UNTIL YOU ARE SEEN IN YOUR DOCTORS OFFICE WITHIN THE NEXT 1-2 DAYS. IT IS YOUR RESPONSIBILITY TO MAKE AN APPOINTMENT FOR FOLOW-UP CARE. IF YOU HAVE A PRIMARY DOCTOR --you should call your primary doctor and schedule and appointment IF YOU DO NOT HAVE A PRIMARY DOCTOR YOU CAN CALL OUR PHYSICIAN REFERRAL HOTLINE AT . IF YOU CAN NOT AFFORD TO SEE A PHYSICIAN YOU CAN CHOSE FROM THE FOLLOWING [facility] INSTITUTIONS: [facility] [address] [place] [address] [facility] [address] [place] [address] [facility] + [facility] [address] [place] [address] [facility] Additional Instructions: Llame al doctor MAANA y samir shu BRITT PARA DENTRO DE 2-3 WEEKS.Dgale a la s ecretaria que nosotros le instruimos hacer esta britt.Avise o llame si byrd condicin se empeora antes de la britt. Regresa aqui si peor o no mejor. TJ MORRISON PA-C Apr 17, 2018 12:27
== END 2018-04-17 12:00 | disposition home or self-care (01) ==
LOC: FTE 10:30
DX: R21 Rash and other nonspecific skin eruption (principal)
CPT/HCPCS: J7512; Z7610; 99283